=== PATIENT | male | born 1995 | race African-American/Black ===

== ENCOUNTER 2019-02-03 22:38 | Observation (INO) | payer BC ==
[2019-02-03] MEDS ORDERED: Ondansetron PF 4 MG/2 ML Vial ONE (23:02)
[2019-02-03] MEDS ORDERED: Insulin Regular 300 UNITS/3 ML VIAL ONE (23:02)
[2019-02-03 23:14] LABS: #Basophils 0.2 thou/uL (0.0-0.2); #Lymphocytes 0.7 thou/uL (1.20-3.40); #Monocytes 0.6 thou/uL (0.11-0.59); #Neutrophils 7.8 thou/uL (1.40-6.50); %Basophils 2.3 % (0.0-1.0); %Lymphocytes 7.1 % (21.0-51.0); %Monocytes 6.2 % (0.0-10.0); %Neutrophils 84.4 % (42.0-75.0); Hemoglobin 15.9 g/dL (14.0-18.0); Mean Corpuscular HGB CONC 33.5 g/dL (32.0-36.0); Mean Corpuscular Volume 89.7 fL (78.0-98.0); Mean Platelet Volume 7.4 fL (7.4-10.4); Platelet Count 195 thou/uL (130-400); RBC Distribution Width 10.8 % (11.5-14.5); White Blood Cell (WBC) Count 9.2 thou/uL (4.8-10.8)
[2019-02-03 23:29] LABS: Bilirubin Small (Negative); Blood, Urine Negative (Negative); Clarity Clear (Clear); Glucose, Urine (Dipstick) 500 mg/dL (Negative); Leukocyte Negative (Negative); Nitrite Negative (Negative); Protein, Urine (Dipstick) 30 mg/dL (Neg-Trace); Urobilinogen 0.2 mg/dL (Less than 2)
[2019-02-03 23:31] LABS: ALT (SGPT) 14 U/L (8-55); AST (SGOT) 19 U/L (5-34); Albumin 4.5 g/dL (3.5-5.0); Alkaline Phosphatase 60 U/L (40-110); Anion Gap 19 mmol/L (10-20); BUN (Urea Nitrogen) 10 mg/dL (8.9-20.6); Bilirubin, Total 0.6 mg/dL (0.2-1.2); Calc. Creatinine Clearance 0 mL/min (70-130); Calcium 9.3 mg/dL (7.8-10.44); Carbon Dioxide 19 mmol/L (22-29); Chloride 99 mmol/L (98-107); Estimated GFR-MDRD Greater than 90; Globulin 3.2 g/dL (2.4-3.5); Glucose 298 mg/dL (70-105); Potassium 4.2 mmol/L (3.5-5.1); Protein, Total 7.7 g/dL (6.0-8.3); Sodium 133 mmol/L (136-145)
[2019-02-03 23:36] LABS: Bacteria/HPF 1+ HPF (None Seen); RBC/HPF 0-3 HPF (0-3); Squamous Epithelial 0-3 HPF (0-3); WBC/HPF 0-3 HPF (0-3)
[2019-02-03 23:37] LABS: Amphetamine Not Detected (NotDetected); Barbiturates Screen Not Detected (NotDetected); Benzodiazepine Screen Not Detected (NotDetected); Cocaine Metabolite Screen Not Detected (NotDetected); Medtox Control Line Valid? VALID (VALID); Methadone Not Detected (NotDetected); Methamphetamine Not Detected (NotDetected); Opiate Screen Not Detected (NotDetected); Oxycodone Screen Not Detected (NotDetected); Phencyclidine (PCP) Not Detected (NotDetected); THC/Cannabinoid Screen Detected (NotDetected); Tricyclic Screen Not Detected (NotDetected)
[2019-02-03] MEDS ORDERED: Oseltamivir 75 MG CAP ONE (23:40)
[2019-02-04] MEDS ORDERED: Ondansetron PF 4 MG/2 ML Vial IVP PRN (00:06)
[2019-02-04] MEDS ORDERED: Ondansetron ODT 4 MG TAB SL PRN (00:06)
[2019-02-04] MEDS: Sodium Chloride 0.9% 1,000 ML IV SCH ×6 (00:53→22:10)
[2019-02-04] MEDS: Acetaminophen 325 MG TAB PO PRN (05:48)
[2019-02-04 05:51] LABS: Anion Gap 15 mmol/L (10-20)
[2019-02-04 06:00] LABS: ALT (SGPT) 11 U/L (8-55); AST (SGOT) 14 U/L (5-34); Albumin 3.5 g/dL (3.5-5.0); Alkaline Phosphatase 46 U/L (40-110); BUN (Urea Nitrogen) 9 mg/dL (8.9-20.6); Bilirubin, Total 0.4 mg/dL (0.2-1.2); Calc. Creatinine Clearance 138 mL/min (70-130); Calcium 7.8 mg/dL (7.8-10.44); Carbon Dioxide 17 mmol/L (22-29); Chloride 105 mmol/L (98-107); Estimated GFR-MDRD Greater than 90; Globulin 2.5 g/dL (2.4-3.5); Glucose 269 mg/dL (70-105); Potassium 3.9 mmol/L (3.5-5.1); Sodium 133 mmol/L (136-145)
[2019-02-04] MEDS ORDERED: Dextrose 5% in Water 1,000 ML IV PRN (07:57)
[2019-02-04] MEDS ORDERED: Dextrose 50% Abboject 50 ML SYRINGE IVP PRN (07:57)
[2019-02-04] MEDS: Oseltamivir 75 MG CAP PO SCH ×2 (09:00→20:43)
[2019-02-04] MEDS ORDERED: FLU VACC QS2019-20(6MOS UP)/PF 60 MCG/0.5 ML SYRINGE IM ONE (11:45)
[2019-02-04] MEDS: HumaLOG 300 UNITS/3 ML VIAL SC PRN ×3 (12:51→20:44)
[2019-02-04] MEDS ORDERED: metFORMIN 500 MG TAB PO SCH (14:15)
[2019-02-04 23:55] VITALS: BMI 23.1
[2019-02-05] MEDS: Acetaminophen 325 MG TAB PO PRN ×2 (01:53→16:43)
[2019-02-05] MEDS: Sodium Chloride 0.9% 1,000 ML IV SCH ×2 (05:35→13:55)
[2019-02-05 06:05] LABS: ALT (SGPT) 13 U/L (8-55); AST (SGOT) 16 U/L (5-34); Albumin 3.6 g/dL (3.5-5.0); Alkaline Phosphatase 46 U/L (40-110); Anion Gap 13 mmol/L (10-20); BUN (Urea Nitrogen) 9 mg/dL (8.9-20.6); Bilirubin, Total 0.3 mg/dL (0.2-1.2); Calc. Creatinine Clearance 125 mL/min (70-130); Calcium 8.3 mg/dL (7.8-10.44); Carbon Dioxide 22 mmol/L (22-29); Chloride 102 mmol/L (98-107); Estimated GFR-MDRD Greater than 90; Globulin 2.5 g/dL (2.4-3.5); Glucose 297 mg/dL (70-105); Potassium 4.5 mmol/L (3.5-5.1); Protein, Total 6.1 g/dL (6.0-8.3); Sodium 132 mmol/L (136-145)
[2019-02-05] MEDS ORDERED: FLU VACC QS2019-20(6MOS UP)/PF 60 MCG/0.5 ML SYRINGE IM ONE (09:00)
[2019-02-05] MEDS: Oseltamivir 75 MG CAP PO SCH (09:22)
[2019-02-05] MEDS ORDERED: metFORMIN 500 MG TAB PO SCH (09:30)
[2019-02-05] MEDS: HumaLOG 300 UNITS/3 ML VIAL SC PRN (09:40)
[2019-02-05 11:42] LABS: Hemoglobin A1c Greater than 14.0 % (4.0-6.0)
[2019-02-05] MEDS ORDERED: Lantus 1000 UNITS/10 ML VIAL SC SCH (12:15)
[2019-02-05] MEDS ORDERED: LANTUS INSULIN SC SCH (13:00)
[2019-02-05 16:19] VITALS: BP 134/72; TEMP 98.6
--- NOTE | 2019-02-06 08:29 | HP ---
CHIEF COMPLAINT: Nausea, vomiting, diarrhea. HISTORY OF PRESENT ILLNESS: The patient is a 23-year-old male with approximately 3 year history of diabetes mellitus, where he had been placed on metformin, but stopped it about 2 years ago due to hypoglycemic spells, who was in his usual state of health until approximately one day prior to admission when he began developing increased nausea, headaches, malaise, and having diarrhea, generalized weakness, and vomiting on the day of admission. The patient was seen in the emergency room, was found to be slightly dehydrated. Influenza B positive and with signs of diabetic ketoacidosis with anion gap and positive ketones in his urine. It was decided that he would need to be hydrated, admitted to observation, and placed on insulin to resolve his new-onset diabetes ketoacidosis as well as treat the flu. PAST MEDICAL HISTORY: Diabetes mellitus. No other significant medical history. PAST SURGICAL HISTORY: None. PSYCHIATRIC HISTORY: None. SOCIAL HISTORY: The patient does report smoking tobacco as well as marijuana occasionally. 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 Lives in the [facility] or [place] and is . No children. The patient is completely independent in all activities of daily living. Denies any significant alcohol or other social drug use other than above and no depression. REVIEW OF SYSTEMS: The patient reports headaches, malaise as above. No sore throat reported. The patient does report a mild cough, nonproductive over the last 2 days, decreased appetite as in HPI reported, and diffuse aches and pains. No dysuria, hematuria, or change in urine frequency. No chest pain. No shortness of breath. No significant weight gain or weight loss. No recent rashes and no visual changes. PHYSICAL EXAMINATION: GENERAL: male, in no obvious distress. VITAL SIGNS: Blood pressure was 138/68, respiratory rate was 16, pulse was 92. HEENT: Atraumatic, normocephalic. Extraocular movements are intact. Pupils are equal, round, reactive to light and accommodation. Oropharynx, mucous membranes are slightly dry. No ulcers or lesions. NECK: Supple. No masses palpated. CHEST: Clear to auscultation bilaterally. HEART: Regular rate and rhythm without murmurs, rubs, or gallops. ABDOMEN: Soft, nontender, nondistended. No masses are palpated. EXTREMITIES: No cyanosis, clubbing, or edema. LABORATORY DATA: Significant for blood sugar in the 300 range. Urinalysis showed greater than 80 ketones. Influenza B positive test noted. ASSESSMENT AND PLAN: 1. New-onset influenza. This is an enticing episode for what has led him to his hospitalization. We will start him on Tamiflu. He has been diagnosed less than 48 hours of onset of symptoms. 2. Diabetic ketoacidosis. The patient will be hydrated with at least 2 to 3 L initially and continue on IV fluids throughout his entire stay. We will start the patient on insulin. We will do Accu-Cheks q.a.c. and h.s. if he is able to eat and advance diet as tolerated. We will follow serum ketones and his overall condition. DISPOSITION: The patient should be discharged within 48 hours as long as his symptoms improve. Job ID: [id number]
--- NOTE | 2019-02-06 08:51 | DIS ---
DATE OF ADMISSION: 02/03/2019 DATE OF DISCHARGE: 02/05/2019 ADMISSION DIAGNOSES: Diabetic ketoacidosis and influenza B with dehydration. BRIEF SUMMARY OF HOSPITAL COURSE: The patient is a 23-year-old male with a history of 3+ years of diabetes but has not been compliant without any medications, was in his usual state of health until approximately 1 to 2 days prior to onset when began having GI symptoms with nausea, vomiting, diarrhea, headaches, and chills, was found to be influenza B positive and had diabetic ketoacidosis, mild. The patient was admitted to the hospital under observation status. He was given a load of 3 L of normal saline over the first 6 to 12 hours and then 150 mL of normal saline per hour thereafter. The patient was started on insulin with his appetite improved and he was able to take a full 2500 calorie diet over his hospital stay without any further emesis. The patient initially had concentrated urine which became clear with frequent urination over the next 36 hours. Serum ketones were initially checked and his level improved during this hospitalization from initial serum ketone of 2.5, the following morning was 1.21. Blood sugar was stabilized to be in the low 200s. He was given for significant diabetes education, was actually given a sample of Lantus 10 units daily, which he injected himself and was trained on how to use and was given again very detailed education on proper diabetic diet and the need to control his blood sugar and start monitoring his blood sugars daily and education on using insulin. The patient was restarted back on his metformin 500 mg daily and he was stable enough for discharge on the afternoon of 02/05/2019. DISCHARGE MEDICATIONS: 1. Tamiflu 75 mg p.o. b.i.d. for a full 5-day course. 2. Metformin 500 mg daily x2 more days, then 500 mg p.o. b.i.d. 3. Lantus. He was given a sample pen 10 units injected daily. The patient also was given prescription for glucometer and told to check his blood sugars twice a day fasting and before his largest meal. He was given an appointment to follow up with Dr. Mery Fernández who was seen before for his diabetes. He has appointment upcoming the day after s 02/11/2019 at 9:00 a.m. The patient told to follow up and return to the emergency room if he has any recurrence of his symptoms and also explained the gravity of diabetes and diabetic ketoacidosis. Job ID: [id number]
== END 2019-02-05 16:55 | disposition home or self-care (01) ==
LOC: BURERS 22:38 → BURMED 23:50
PROVIDERS: ADMIT Family Medicine; ATTEND Family Medicine
DX: E11.10 Type 2 diabetes mellitus with ketoacidosis without coma (principal); J10.1 Influenza due to other identified influenza virus with other respiratory manifestations; E86.0 Dehydration; F17.210 Nicotine dependence, cigarettes, uncomplicated; F12.10 Cannabis abuse, uncomplicated; Z91.14 Patient's other noncompliance with medication regimen; Z79.84 Long term (current) use of oral hypoglycemic drugs
CPT/HCPCS: 36415; 36416; 80053; 80306; 81003; 81015; 82010; 83036; 85025; 87804; 90471; 90686; 96361; 96374; 96375; G0008; G0378; J1815; J2405

== ENCOUNTER 2020-03-23 10:06 | Emergency (ER) | payer BC ==
[2020-03-24 02:26] LABS: SARS-CoV-2 PCR by NAA DETECTED (NotDetected)
== END 2020-03-23 10:39 | disposition home or self-care (01) ==
LOC: BURERS 10:06
DX: U07.1 COVID-19 (principal); E11.65 Type 2 diabetes mellitus with hyperglycemia; R10.84 Generalized abdominal pain; F17.210 Nicotine dependence, cigarettes, uncomplicated
CPT/HCPCS: 36416; 87635; 87804; 99281; U0003; U0005

== ENCOUNTER 2024-11-30 17:49 | Emergency (ER) | payer OTHER, SELFPAY ==
[2024-11-30 18:46] LABS: Glucose, Urine (Dipstick) >=1000 mg/dL (Negative); Leukocyte Negative (Negative); Protein, Urine (Dipstick) Trace mg/dL (Neg-Trace); Specific Gravity, Urine 1.025 (1.005-1.030)
[2024-11-30 18:51] LABS: Hematocrit 41.3 % (42.0-52.0); Hemoglobin 15.2 g/dL (14.0-18.0); Mean Corpuscular Hemoglobin 31.2 pg (27.0-31.0); Mean Corpuscular Volume 84.7 fl (78.0-98.0); Platelet Count 350 10x3/uL (130-400); Red Blood Cell (RBC) Count 4.88 mill/uL (4.70-6.10); White Blood Cell (WBC) Count 8.9 10x3/uL (4.8-10.8)
[2024-11-30 18:53] LABS: ALT (SGPT) 11 U/L (Less than 45); AST (SGOT) 14 U/L (11-34); Albumin 4.0 g/dL (3.1-4.5); Alkaline Phosphatase 70 U/L (40-110); Anion Gap 16 mmol/L (10-20); BUN (Urea Nitrogen) 14 mg/dL (8.9-20.6); Bilirubin, Total 0.4 mg/dL (0.3-1.2); Calc. Creatinine Clearance 0 mL/min (70-130); Calcium 9.2 mg/dL (7.8-10.44); Carbon Dioxide 24 mmol/L (22-29); Chloride 100 mmol/L (98-107); Globulin 3.9 g/dL (2.4-3.5); Glucose 386 mg/dL (70-105); Potassium 4.3 mmol/L (3.5-5.1); Sodium 136 mmol/L (136-145)
[2024-11-30 18:55] LABS: Troponin I Less than 0.010 ng/mL (< 0.028)
[2024-11-30 18:57] LABS: Bacteria/HPF Rare-Few HPF (None Seen); CAUTI Indications for Culture Dysuria,urgency,freq; Mucous/LPF Few LPF (<2+); RBC/HPF 0-3 HPF (0-3); WBC/HPF None Seen HPF (0-3)
[2024-11-30 18:58] LABS: Urine Culture Reflex No No
[2024-11-30 19:08] LABS: MDiff Complete? YES; Platelet Adequacy Comment Appears Adequate
== END 2024-11-30 20:20 | disposition home or self-care (01) ==
LOC: BURERS 17:49
DX: E11.65 Type 2 diabetes mellitus with hyperglycemia (principal)
CPT/HCPCS: 36416; 80053; 81001; 84484; 85025; 93005; 96374; J1815